=== PATIENT | male | born 1965 | race Caucasian/White ===

== ENCOUNTER 2022-10-27 11:06 | Emergency (ER) | payer MEDICAID ==
[~2022-10-27] VITALS: Ht 180 cm; Wt 83.0 kg
[~2022-10-27 11:06] MED LIST: AMPH20TA PO; CTLP20T PO; HCT25T PO; HYDR50CA3 PO; LEVOTYROXINE; LORA0.5T PO; MELO15TA14 PO; METHADONE; NFTRIAZ.25 PO; PROP10TA8 PO; TRM50T PO; [UNRECOGNIZED DRUG - OTHER] PO
[2022-10-27] MEDS ORDERED: ONDANSETRON 4 MG/2 ML (SDV) Z0FRAN IVP ONE (11:30)
[2022-10-27] MEDS ORDERED: NS IV 1000 ML 1,000 ML IV SCH (11:30)
--- NOTE | 2022-10-27 11:36 | ED Abdominal Pain ---
General Chief Complaint: Abdominal/GI Problems Stated Complaint: ABD PAIN Nursing Triage Note: RIGHT LOWER ABD PAIN THAT RADIATES INTO BACK FOR MONTHS. SENT OVER FROM [facility]. History of Present Illness Date Seen by Provider: October 27, 2022 Time Seen by Provider: 11:20 Initial Comments 57 year old male sent from [facility] for abdominal pain. Reports 2 month history of severe abdominal pain and associated right neck pain. Patient denies symptoms being worse today. He has been evaluated by Dr. Strange at [facility] but only talked to him about neck pain. He was started on muscle relaxant and given a shot approximately 2 days ago at [facility] with no improvement. Patient is difficult to obtain thorough history from, he is pacing in room and concentration is impaired. Reports using methamphetamines approximately 3 days ago to help with the pain, uses marijuana several days a week and chronic tobacco user. He denies previous history of surgeries to his abdomen, no history of kidney stones, denies flank pain. No previous colonoscopy. Reports moderate nausea has not vomited. He reports last stool this morning was small and firm. He does have issues with constipation at times. Reports occasional hesitancy in urination. He ate some fruit loops this morning. Limited fluid intake, secondary to pain. Timing/Duration: Getting Worse, Intermittent, Other (2 months) Severity/Quality: Moderate Location: Generalized Abdomen Radiation: Other (right neck) Associated Symptoms: No Back Pain, No Chest Pain; Diaphoresis (intermittently); No Fever/Chills, No Headache, No Heartburn; Nausea/Vomiting; No Swelling/Mass in Abdomen, No Syncope, No Weakness Allergies and Home Medications Allergies Coded Allergies: Penicillins (Unverified Allergy, Unknown, 11/02/13) trazodone (Verified Allergy, Unknown, 10/27/22) Patient Home Medication List Home Medication List Reviewed: Yes Hydrochlorothiazide (Hctz) 25 Mg Tab, 25 MG PO DAILY@0900, (Reported) Entered as Reported by: WENDY DELGADO on 09/03/101817 Propranolol Hcl (Inderal) 10 Mg Tablet, 1 EACH PO BID, (Reported) Entered as Reported by: WENDY DELGADO on 09/03/101816 Tramadol Hcl (Ultram) 50 Mg Tab, 1 PO BID, (Reported) Entered as Reported by: WENDY DELGADO on 09/03/101817 Triazolam (Halcion) 0.25 Mg Tablet, 0.25 MG PO HS, (Reported) Entered as Reported by: PATO FLORES on 10/04/13 1233 [Methadone] , ?MG TID, (Reported) Entered as Reported by: PATO FLORES on 10/04/13 1234 Review of Systems Review of Systems Constitutional: no symptoms reported, see HPI EENTM: No Symptoms Reported, See HPI Respiratory: No Symptoms Reported, See HPI; Denies Cough, Denies Shortness of Air, Denies SOA With Exertion, Denies SOA at Rest Cardiovascular: No Symptoms Reported, See HPI; Denies Chest Pain Gastrointestinal: See HPI, Abdominal Pain (generalized); Denies Blood Streaked Stools, Denies Constipated, Denies Diarrhea, Denies Difficulty Swallowing; Nausea; Denies Rectal Bleeding, Denies Vomiting Genitourinary: See HPI Musculoskeletal: see HPI, neck pain Skin: no symptoms reported, see HPI; No rash All Other Systems Reviewed Negative Unless Noted: Yes Past Mmsdfsr-[id number]-Xqedpa Hx Patient Social History Tobacco Use?: Yes Tobacco type used: Cigarettes Smoking Status: Current Everyday Smoker Substance use?: Yes Substance type: Methamphetamine, Marijuana Additional substance use comme: SPEED Alcohol Use?: No Past Medical History ADD/ADHD, Anxiety Family Medical History Reviewed Nursing Family Hx Physical Exam Vital Signs Vital Signs - First Documented 10/27/22 11:20 Temp 35.6 Pulse 116 Resp 20 B/P (MAP) 90/76 (81) Pulse Ox 94 O2 Delivery Room Air Capillary Refill : Less Than 3 Seconds Height/Weight/BMI Height: 5'9" Weight: 230lbs. oz. 104.678435um; 25.00 BMI Method:Stated General Appearance: WD/WN, mild distress (secondary to pain) HEENT: PERRL/EOMI, normal ENT inspection, TMs normal, pharynx normal Neck: full range of motion, supple, normal inspection; No lymphadenopathy (R), No lymphadenopathy (L); tender lateral (right); No tender midline Respiratory: chest non-tender, lungs clear, normal breath sounds, no respiratory distress Cardiovascular: normal peripheral pulses, regular rate, rhythm, no edema, tachycardia (90s-110) Gastrointestinal: normal bowel sounds, soft, distended; No guarding, No rebound; tenderness (generalized, no increased pain with concepcion sign or rebound testing. ) Neurologic/Psychiatric: no motor/sensory deficits, alert, oriented x 3; No facial droop Skin: normal color, warm/dry; No diaphoresis, No jaundice Progress/Results/Core Measures Results/Orders Lab Results Laboratory Tests Test 10/27/22 11:43 Range/Units White Blood Count 18.1 H 4.3-11.0 10^3/uL Red Blood Count 4.54 4.30-5.52 10^6/uL Hemoglobin 15.3 13.3-17.7 g/dL Hematocrit 41 40-54 % Mean Corpuscular Volume 91 80-99 fL Mean Corpuscular Hemoglobin 34 25-34 pg Mean Corpuscular Hemoglobin Concent 37 H 32-36 g/dL Red Cell Distribution Width 11.9 10.0-14.5 % Platelet Count 491 H 130-400 10^3/uL Mean Platelet Volume 9.0 9.0-12.2 fL Immature Granulocyte % (Auto) 1 % Neutrophils (%) (Auto) 75 42-75 % Lymphocytes (%) (Auto) 15 12-44 % Monocytes (%) (Auto) 6 0-12 % Eosinophils (%) (Auto) 3 0-10 % Basophils (%) (Auto) 1 0-10 % Neutrophils # (Auto) 13.5 H 1.8-7.8 10^3/uL Lymphocytes # (Auto) 2.8 1.0-4.0 10^3/uL Monocytes # (Auto) 1.1 H 0.0-1.0 10^3/uL Eosinophils # (Auto) 0.6 H 0.0-0.3 10^3/uL Basophils # (Auto) 0.1 0.0-0.1 10^3/uL Immature Granulocyte # (Auto) 0.1 0.0-0.1 10^3/uL Neutrophils % (Manual) 74 % Lymphocytes % (Manual) 18 % Monocytes % (Manual) 3 % Eosinophils % (Manual) 5 % Blood Morphology Comment NORMAL Prothrombin Time 12.2 12.2-14.7 SEC INR Comment 0.9 0.8-1.4 Activated Partial Thromboplast Time 28 24-35 SEC Urine Color YELLOW Urine Clarity CLEAR Urine pH 7.5 5-9 Urine Specific [place] 1.010 L 1.016-1.022 Urine Protein 1+ H NEGATIVE Urine Glucose (UA) NEGATIVE NEGATIVE Urine Ketones NEGATIVE NEGATIVE Urine Nitrite NEGATIVE NEGATIVE Urine Bilirubin NEGATIVE NEGATIVE Urine Urobilinogen 0.2 < = 1.0 MG/DL Urine Leukocyte Esterase NEGATIVE NEGATIVE Urine RBC (Auto) NEGATIVE NEGATIVE Urine RBC NONE /HPF Urine WBC NONE /HPF Urine Squamous Epithelial Cells RARE /HPF Urine Crystals NONE /LPF Urine Bacteria NEGATIVE /HPF Urine Casts NONE /LPF Urine Mucus NEGATIVE /LPF Urine Culture Indicated NO Sodium Level 131 L 135-145 MMOL/L Potassium Level 3.6 3.6-5.0 MMOL/L Chloride Level 92 L 98-107 MMOL/L Carbon Dioxide Level 22 21-32 MMOL/L Anion Gap 17 H 5-14 MMOL/L Blood Urea Nitrogen 8 7-18 MG/DL Creatinine 0.94 0.60-1.30 MG/DL Estimat Glomerular Filtration Rate 95 BUN/Creatinine Ratio 9 Glucose Level 140 H 70-105 MG/DL Calcium Level 9.9 8.5-10.1 MG/DL Corrected Calcium 8.5-10.1 MG/DL Magnesium Level 1.6 1.6-2.4 MG/DL Total Bilirubin 0.5 0.1-1.0 MG/DL Aspartate Amino Transf (AST/SGOT) 12 5-34 U/L Alanine Aminotransferase (ALT/SGPT) 15 0-55 U/L Alkaline Phosphatase 96 40-136 U/L Troponin I < 0.028 <0.028 NG/ML C-Reactive Protein High Sensitivity 0.25 0.00-0.50 MG/DL B-Type Natriuretic Peptide 26.8 <100.0 PG/ML Total Protein 7.8 6.4-8.2 GM/DL Albumin 4.6 H 3.2-4.5 GM/DL Amylase Level 46 25-125 U/L Lipase 23 8-78 U/L Urine Opiates Screen NEGATIVE NEGATIVE Urine Oxycodone Screen NEGATIVE NEGATIVE Urine Methadone Screen NEGATIVE NEGATIVE Urine Propoxyphene Screen NEGATIVE NEGATIVE Urine Barbiturates Screen NEGATIVE NEGATIVE Ur Tricyclic Antidepressants Screen NEGATIVE NEGATIVE Urine Phencyclidine Screen NEGATIVE NEGATIVE Urine Amphetamines Screen POSITIVE H NEGATIVE Urine Methamphetamines Screen POSITIVE H NEGATIVE Urine Benzodiazepines Screen NEGATIVE NEGATIVE Urine Cocaine Screen NEGATIVE NEGATIVE Urine Cannabinoids Screen POSITIVE H NEGATIVE Serum Alcohol < 10 <10 MG/DL My Orders Orders - [facility] Ua Culture If Indicated (10/27/22 11:14) Alcohol (10/27/22 11:28) Amylase (10/27/22 11:28) Bnp [place] (10/27/22 11:28) Cbc With Automated Diff (10/27/22 11:28) Comprehensive Metabolic Panel (10/27/22 11:28) Hs C Reactive Protein (10/27/22 11:28) Drug Screen Stat (Urine) (10/27/22 11:28) Magnesium (10/27/22 11:28) Protime With Inr (10/27/22 11:28) Partial Thromboplastin Time (10/27/22 11:28) Troponin I Clarissa (10/27/22 11:28) Lipase (10/27/22 11:28) Ed Iv/Invasive Line Start (10/27/22 11:28) Ns Iv 1000 Ml (Sodium Chloride 0.9%) (10/27/22 11:30) Ondansetron Injection (Zofran Injectio (10/27/22 11:30) Manual Differential (10/27/22 11:43) Fentanyl Inj (Sublimaze Injection) (10/27/22 12:01) Ct Abdomen/Pelvis Wo (10/27/22 12:01) Chest 1 View, Ap/Pa Only (10/27/22 12:02) Medications Given in ED Current Medications Medications Dose Ordered Sig/Evelia Route Start Time Stop Time Status Last Admin Dose Admin Ondansetron HCl 4 mg ONCE ONCE IVP 10/27/22 11:30 10/27/22 11:31 DC 10/27/22 11:53 4 MG Vital Signs/I&O 10/27/22 11:20 Temp 35.6 Pulse 116 Resp 20 B/P (MAP) 90/76 (81) Pulse Ox 94 O2 Delivery Room Air Blood Pressure Mean: 81 Progress Progress Note : Time: 11:20 Progress Note Patient evaluated, will obtain labs, normal saline 1 L per IV, Zofran 4 mg for nausea. We will keep patient n.p.o. until further work-up. Differentials: Cholecystitis, appendicitis, diverticulitis, cannabinoid induced hyperemesis, nephrolithiasis. 1200 WBC 18 with normal CRP, will obtain CT abdomen/pelvis. B/P 110-120/70-80. HR 80-90s. patient continues to pace in room. Denies hematuria. Will give Fentanyl 50 mcg for pain. 1245 labs results discussed with patient, improvement in pain since receiving Fentanyl and fluids. Awaiting CT results. 1330 CT results discussed with patient, showing small possible stone at distal CBD, nonobtructing and nonobstructing kidney stone. Reviewed CT and labs with Dr Kaitlin Hernandez, agreeable with plans for dc and outpatient management. May need evaluation by General Surgery but nothing acute at this time requiring surgery or immediate consult. Encouraged follow up with PCP at [facility]. Discharge instructions and return precautions reviewed with the patient. Vital signs stable at discharge. Diagnostic Imaging Diagonstic Imaging: Xray Plain Films/CT/US/NM/MRI: chest Comments NAME: MALENA OSBORN [facility] REC#: [id number] PT STATUS: REG ER : 1965 PHYSICIAN: TAMICA CASSIDY ADMIT DATE: 10/27/22/ER Signed Date of Exam:10/27/22 CHEST 1 VIEW, AP/PA ONLY CHEST 1 VIEW, AP/PA ONLY Indication: Abdominal pain Comparison: 10/04/2013 Findings: No focal airspace disease in the visualized lungs. No pleural effusion or pneumothorax. Normal cardiomediastinal silhouette. Old healed left-sided rib fractures. Impression: 1. No acute cardiopulmonary process by portable radiography. Dictated by: Dictated on workstation # [id number] Dict: 10/27/22 1229 Trans: 10/27/22 1231 [facility] [id number] Interpreted by: JIM GREEN MD Electronically signed by: JIM GREEN MD 10/27/22 1231 Reviewed: Reviewed by Va Diagonstic Imaging: CT Plain Films/CT/US/NM/MRI: abdomen, pelvis Comments NAME: MALENA OSBORN [facility] REC#: [id number] PT STATUS: REG ER : 1965 PHYSICIAN: TAMICA CASSIDY ADMIT DATE: 10/27/22/ER Draft Date of Exam:10/27/22 CT ABDOMEN/PELVIS WO PROCEDURE: CT abdomen and pelvis without contrast. TECHNIQUE: Multiple contiguous axial images were obtained through the abdomen and pelvis without the use of intravenous contrast. Auto Exposure Controls were utilized during the CT exam to meet ALARA standards for radiation dose reduction. INDICATION: Upper right abdominal pain. FINDINGS: Unenhanced images of the liver, gallbladder, pancreas, adrenal glands, and spleen are unremarkable. Focal punctate calcification may reside within the distal common bile duct. There is an approximately 0.3 cm nonobstructing stone in the lower pole of left kidney with rounded cortical nodule in the medial left mid kidney reaching 2.1 cm in diameter. This likely represents a cyst. Mild edema or possible scarring is seen in the perinephric fat bilaterally. There is [id number] aortoiliac atherosclerotic calcification. Unopacified bladder is unremarkable in appearance. There is no evidence of appendiceal region inflammation. No organized fluid collection is seen. Note is made of grade 2 anterolisthesis of L5 on S1 with advanced degenerative facet and disc disease at the lumbosacral junction. IMPRESSION: 1. Punctate calcification may reside within the distal common bile duct without evidence of biliary ductal dilatation. Consideration could be given to hepatobiliary scan or MRCP for assessment. 2. Nonobstructing left lower pole renal stone without other evidence of acute abnormality within the abdomen or pelvis. Dictated on workstation # [id number] Dict: 10/27/22 1259 Trans: 10/27/22 1312 [id number] Interpreted by: BRYANT SHEPHERD MD Electronically signed by: Reviewed: Reviewed by Me Departure Impression Primary Impression: Abdominal pain Qualified Codes: R10.84 - Generalized abdominal pain Additional Impressions: Tobacco abuse Methamphetamine use Marijuana smoker Disposition: 01 HOME, SELF-CARE Condition: Improved Departure-Patient Inst. Decision time for Depature: 13:20 Referrals: [facility] (PCP/Family) Primary Care Physician Patient Instructions: Drug Misuse and Addiction (DC), Severe Abdominal Pain, Adult (DC) Add. Discharge Instructions: [place] diet as tolerated, increase water intake: 16 ounces every 2 hours while awake. Follow-up with your primary care provider at [facility] you may require referral to general surgery to evaluate your gallbladder. Pain management per [facility]. Return to the emergency department for new, urgent healthcare needs. All discharge instructions reviewed with patient and/or family. Voiced understanding. Copy Copies To 1: JUAN STRANGE MD, AMY ARNP October 27, 2022 11:36
[2022-10-27 11:56] LABS: BILIRUBIN,URINE NEGATIVE (NEGATIVE); CLARITY,URINE CLEAR; COLOR,URINE YELLOW; GLUCOSE, URINE (UA) NEGATIVE (NEGATIVE); KETONES,URINE NEGATIVE (NEGATIVE); LEUKOCYTE ESTERASE ,URINE NEGATIVE (NEGATIVE); NITRITE,URINE NEGATIVE (NEGATIVE); PH,URINE 7.5 (5-9); PROTEIN,URINE 1+ (NEGATIVE)
[2022-10-27 11:57] LABS: BASOPHILS # (AUTO) 0.1 10^3/uL (0.0-0.1); BASOPHILS % (AUTO) 1 % (0-10); EOSINOPHILS # (AUTO) 0.6 10^3/uL (0.0-0.3); EOSINOPHILS % (AUTO) 3 % (0-10); HEMATOCRIT 41 % (40-54); HEMOGLOBIN 15.3 g/dL (13.3-17.7); LYMPHOCYTES # (AUTO) 2.8 10^3/uL (1.0-4.0); LYMPHOCYTES % (AUTO) 15 % (12-44); MEAN CORPUSCULAR HEMOGLOBIN 34 pg (25-34); MEAN CORPUSCULAR HGB CONC 37 g/dL (32-36); MEAN CORPUSCULAR VOLUME 91 fL (80-99); MONOCYTES # (AUTO) 1.1 10^3/uL (0.0-1.0); MONOCYTES % (AUTO) 6 % (0-12); NEUTROPHILS # (AUTO) 13.5 10^3/uL (1.8-7.8); NEUTROPHILS % (AUTO) 75 % (42-75); PLATELET COUNT 491 10^3/uL (130-400); WHITE BLOOD COUNT 18.1 10^3/uL (4.3-11.0)
[2022-10-27] MEDS ORDERED: fentaNYL INJ 100 MCG/2 ML AMP IVP STA (12:01)
[2022-10-27 12:11] LABS: AMPHETAMINE SCREEN, URINE POSITIVE (NEGATIVE); BARBITURATE SCREEN URINE NEGATIVE (NEGATIVE); BENZODIAZEPINES SCREEN URINE NEGATIVE (NEGATIVE); CANNABINOID SCREEN, URINE POSITIVE (NEGATIVE); COCAINE SCREEN URINE NEGATIVE (NEGATIVE); METHADONE STAT NEGATIVE (NEGATIVE); OPIATE SCREEN URINE NEGATIVE (NEGATIVE); OXYCODONE STAT NEGATIVE (NEGATIVE); PROPOXYPHENE STAT NEGATIVE (NEGATIVE); TRICYCLIC ANTIDEPRESSANTS SCRE NEGATIVE (NEGATIVE)
[2022-10-27 12:12] LABS: ALBUMIN 4.6 GM/DL (3.2-4.5); CHLORIDE 92 MMOL/L (98-107); POTASSIUM 3.6 MMOL/L (3.6-5.0); SODIUM 131 MMOL/L (135-145)
[2022-10-27 12:13] LABS: AMYLASE 46 U/L (25-125); CALCIUM 9.9 MG/DL (8.5-10.1)
[2022-10-27 12:14] LABS: GLUCOSE 140 MG/DL (70-105)
[2022-10-27 12:15] LABS: TOTAL PROTEIN 7.8 GM/DL (6.4-8.2)
[2022-10-27 12:16] LABS: BILIRUBIN,TOTAL 0.5 MG/DL (0.1-1.0); CARBON DIOXIDE 22 MMOL/L (21-32)
[2022-10-27 12:17] LABS: BACTERIA,URINE NEGATIVE /HPF; SQUAMOUS EPITHELIAL CELL,UR RARE /HPF
[2022-10-27 12:18] LABS: ALKALINE PHOSPHATASE 96 U/L (40-136); CREATININE SERUM 0.94 MG/DL (0.60-1.30); GFR ESTIMATED 95
[2022-10-27 12:19] LABS: BUN/CREATININE RATIO 9
[2022-10-27 12:21] LABS: ALANINE AMINOTRANSFERASE 15 U/L (0-55); MAGNESIUM 1.6 MG/DL (1.6-2.4)
[2022-10-27 12:22] LABS: LIPASE 23 U/L (8-78)
--- NOTE | 2022-10-27 12:32 | Diagnostic Imaging Report ---
CHEST 1 VIEW, AP/PA ONLY Indication: Abdominal pain Comparison: 10/04/2013 Findings: No focal airspace disease in the visualized lungs. No pleural effusion or pneumothorax. Normal cardiomediastinal silhouette. Old healed left-sided rib fractures. Impression: 1. No acute cardiopulmonary process by portable radiography. Dictated by: Dictated on workstation # [id number]
[2022-10-27 12:36] LABS: INR 0.9 (0.8-1.4); PROTHROMBIN TIME PATIENT 12.2 SEC (12.2-14.7)
[2022-10-27 13:00] LABS: EOSINOPHILS % (MANUAL) 5 %; LYMPHOCYTES % (MANUAL) 18 %; MONOCYTES % (MANUAL) 3 %; NEUTROPHILS % (MANUAL) 74 %; RBC MORPH NORMAL
--- NOTE | 2022-10-27 13:12 | Diagnostic Imaging Report ---
PROCEDURE: CT abdomen and pelvis without contrast. TECHNIQUE: Multiple contiguous axial images were obtained through the abdomen and pelvis without the use of intravenous contrast. Auto Exposure Controls were utilized during the CT exam to meet ALARA standards for radiation dose reduction. INDICATION: Upper right abdominal pain. FINDINGS: Unenhanced images of the liver, gallbladder, pancreas, adrenal glands, and spleen are unremarkable. Focal punctate calcification may reside within the distal common bile duct. There is an approximately 0.3 cm nonobstructing stone in the lower pole of left kidney with rounded cortical nodule in the medial left mid kidney reaching 2.1 cm in diameter. This likely represents a cyst. Mild edema or possible scarring is seen in the perinephric fat bilaterally. There is [id number]-[id number] aortoiliac atherosclerotic calcification. Unopacified bladder is unremarkable in appearance. There is no evidence of appendiceal region inflammation. No organized fluid collection is seen. Note is made of grade 2 anterolisthesis of L5 on S1 with advanced degenerative facet and disc disease at the lumbosacral junction. IMPRESSION: 1. Punctate calcification may reside within the distal common bile duct without evidence of biliary ductal dilatation. Consideration could be given to hepatobiliary scan or MRCP for assessment. 2. Nonobstructing left lower pole renal stone without other evidence of acute abnormality within the abdomen or pelvis. Dictated by: Dictated on workstation # [id number]
[2022-10-27 13:53] VITALS: BP 134/83
== END 2022-10-27 13:53 | disposition home or self-care (01) ==
LOC: EDUNIT# 11:06 → ER 11:09
DX: R10.84 Generalized abdominal pain (principal); F15.90 Other stimulant use, unspecified, uncomplicated; F12.90 Cannabis use, unspecified, uncomplicated; M54.2 Cervicalgia; R11.0 Nausea; F17.210 Nicotine dependence, cigarettes, uncomplicated
CPT/HCPCS: 71045; 74176; 80053; 80306; 81000; 82150; 83690; 83735; 83880; 84484; 85007; 85027; 85610; 85730; 86141; 99284; G0480; 36415; 80320